=== PATIENT | female | born 1965 | race Caucasian/White ===

== ENCOUNTER 2017-08-05 13:56 | Inpatient (IN) | payer OTHER ==
[~2017-08-05] VITALS: Ht 160 cm; Wt 76.3 kg
[~2017-08-05 13:56] MED LIST: ASPIRIN
--- OUTSIDE RECORDS SUMMARY | 2017-08-05 13:59 | XMS REPORT | Clinical Summary ---
Author Author [facility] Address Unknown Phone Unavailable Care Team Providers Care Tobacco Sampler Name Role Phone Isma Wallace MD PCP Allergies No Known Allergies Current Medications Prescription Sig. Disp. Refills Start End Date Status Date naproxen (NAPROSYN) 500 04/16/20 Active MG tablet 17 traMADol (ULTRAM) 50 mg 04/16/20 Active tablet 17 ondansetron (ZOFRAN, Take 1 tablet (4 mg 20 tablet 0 04/21/20 Active HYDROCHLORIDE,) 4 MG total) by mouth every 8 17 tabletIndications: Closed (eight) hours as needed displaced pilon fracture for nausea or vomiting. of left tibia, initial encounter traMADol (ULTRAM) 50 mg Take 1 tablet (50 mg 40 tablet 0 04/21/20 tabletIndications: Closed total) by mouth every 6 17 18 displaced pilon fracture (six) hours as needed for of left tibia, initial moderate pain for up to encounter 33 days. oxyCODone-acetaminophen Take 1 tablet by mouth 40 tablet 0 04/21/20 05/05/20 (PERCOCET) 10-325 mg per every 4 (four) hours as 17 17 tabletIndications: Closed needed for moderate pain displaced pilon fracture for up to 14 days. Max of left tibia, initial Daily Amount: 6 tablets encounter Active Problems Problem Noted Date Closed displaced pilon fracture of left tibia 04/19/2017 Encounters Date Type Specialty Care Team Description 08/04/2017 Telephone Orthopedic Surgery Deyanira Kolb MA 07/19/2017 Office Visit Orthopedic Surgery Jose L Malagon Closed displaced pilon MD Cedric fracture of left tibia with routine healing, subsequent encounter (Primary Dx) 07/18/2017 Orders Only Orthopedic Surgery Deyanira Kolb MA Closed displaced pilon fracture of left tibia with routine healing, subsequent encounter (Primary Dx) 06/13/2017 Orders Only Ortho Sports Medicine Mallory Kat MA Closed displaced pilon fracture of left tibia with routine healing, subsequent encounter (Primary Dx) 06/07/2017 Office Visit Orthopedic Surgery Jose L Malagon Left ankle pain, MD Cedric unspecified chronicity (Primary Dx); Closed displaced pilon fracture of left tibia with routine healing, subsequent encounter 05/17/2017 Office Visit Orthopedic Surgery Jose L Malagon Closed displaced amando Steele MD fracture of left tibia with routine healing, subsequent encounter 05/06/2017 Telephone Orthopedic Surgery Jose L Malagon MD 05/03/2017 Office Visit Orthopedic Surgery Jose L Malagon Closed displaced amando Steele MD fracture of left tibia with routine healing, subsequent encounter (Primary Dx) 04/29/2017 Telephone Orthopedic Surgery Deyanira Kolb MA 04/27/2017 Hospital General Surgery Jose L Malagon Encounter MD Cedric 04/27/2017 Anesthesia General Surgery Gavin Guajardo Event MD 04/27/2017 Procedure Pass General Surgery 04/27/2017 Surgery General Surgery Jose L Malagon ORIF, DISTAL TIBIA MD Cedric FRACTURE 04/25/2017 Pre-Admit Pre-Admission Testing Jose L Malagon Testing MD Cedric Appointment 04/21/2017 Office Visit Orthopedic Surgery Jose L Malagon Closed displaced amando Steele MD fracture of left tibia, initial encounter (Primary Dx) 04/19/2017 Hospital Radiology Jose L Malagon Left ankle pain, Encounter MD Cedric unspecified chronicity 04/19/2017 Office Visit Orthopedic Surgery Jose L Malagon Left ankle pain, MD Cedric unspecified chronicity (Primary Dx); Closed displaced pilon fracture of left tibia, initial encounter after 08/04/2016 Family History Medical History Relation Name Comments Heart disease Father Cancer Mother Diabetes Mother Hypertension Mother Relation Name Status Comments Father Mother Social History Tobacco Use Types Packs/Day Years Used Date Heavy Tobacco Smoker Cigarettes 0.5 15 Smokeless Tobacco: Never Used Alcohol Use Drinks/Week oz/Week Comments Yes 3-4 glasses of wine per week Sex Assigned at Date Recorded Not on file Last Filed Vital Signs Vital Sign Reading Time Taken Blood Pressure 144/83 07/19/2017 9:13 AM [facility]ER Pulse 86 07/19/2017 9:13 AM [facility]ING DEPARTMENT END FINDER Temperature 36.6 C (97.9 F) 04/27/2017 2:24 PM TWISTING DEPARTMENT END FINDER Respiratory Rate 18 04/27/2017 4:12 PM TWISTING DEPARTMENT END FINDER Oxygen Saturation 99% 04/27/2017 4:12 PM TWISTING DEPARTMENT END FINDER Inhaled Oxygen - - Concentration Weight 72.6 kg (160 lb) 08/03/2017 11:18 AM CDT Height 160 cm (5' 3") 08/03/2017 11:18 AM CDT Body Mass Index 28.34 08/03/2017 11:18 AM CDT Plan of Treatment Date Type Specialty Care Team Description 08/12/2017 Surgery Jose L Malagon REMOVAL, HARDWARE, PLATE MD Cedric AND SCREWS LEFT ANKLE [address] [facility] [address] [place] [address] [phone] 08/12/2017 Procedure Pass 08/12/2017 [facility] Jose L Malagon MD [address] [facility] [address] [place] [address] [phone] 08/18/2017 Office Visit Orthopedic Surgery Jose L Malagon MD [address] [facility] [address] [place] [address] [phone] Health Maintenance Due Date Last Done Comments PAP SMEAR 1988 INFLUENZA VACCINE 12/21/2016 COLONOSCOPY 2017 MAMMOGRAM 2017 Implants Implanted Type Area Intake Specialist Device Expiration Model / Identifier Date Serial / Lot 2.7/3.5mm Va-Lcp Medial Distal IPM Left: SYNTHES TRAUMA 02 118 [id number] Tibia Plate/4 Holes/Left - IMPLANT Tibia / [id number] DEVICES / Implanted: Qty: 1 on 04/27/2017 by LOT NA Jose L Malagon MD 3.5mm Variable Angle Locking IPM Left: SYNTHES TRAUMA 02 127 124 Screw/Slf-Tpng/Strdrv/24mm - IMPLANT Tibia / [id number] DEVICES / Implanted: Qty: 2 on 04/27/2017 by Jose L Malagon MD 2.7mm Va Lckng Screw Slf-Tpng With IPM Left: SYNTHES TRAUMA 02 211 034 T8 Stardrive Recess 34mm - IMPLANT Tibia / [id number] DEVICES / Implanted: Qty: 1 on 04/27/2017 by Jose L Malagon MD 2.7mm Va Lckng Screw Slf-Tpng With IPM Left: SYNTHES TRAUMA 211 036 T8 Stardrive Recess 36mm - IMPLANT Tibia / [id number] DEVICES / Implanted: Qty: 1 on 04/27/2017 by Jose L Malagon MD 2.7mm Va Lckng Screw Slf-Tpng With IPM Left: SYNTHES TRAUMA 211 040 T8 Stardrive Recess 40mm - IMPLANT Tibia / [id number] DEVICES / Implanted: Qty: 1 on 04/27/2017 by Jose L Malagon MD 2.7mm Va Lckng Screw Slf-Tpng With IPM Left: SYNTHES TRAUMA 02 211 032 T8 Stardrive Recess 32mm - IMPLANT Tibia / [id number] DEVICES / Implanted: Qty: 1 on 04/27/2017 by Jose L Malagon MD 2.7mm Va Lckng Screw Slf-Tpng With IPM Left: SYNTHES TRAUMA 211 046 T8 Stardrive Recess 46mm - IMPLANT Tibia / [id number] DEVICES / Implanted: Qty: 1 on 04/27/2017 by Jose L Malagon MD 2.7mm Va Lckng Screw Slf-Tpng With IPM Left: SYNTHES TRAUMA 02 211 048 T8 Stardrive Recess 48mm - IMPLANT Tibia / [id number] DEVICES / Implanted: Qty: 1 on 04/27/2017 by Jose L Malagon MD Screw Bone Lkng Slf-Tap V-Ang Ss Orthopedic Left: SYNTHES TRAUMA 02 211 018 2.7x18mm - [id number] Trauma Tibia AND RECON / Implanted: Qty: 1 on 04/27/2017 by Implants / Jose L Malagon MD Screw Bone Lkng Slf-Tap V-Ang W/ T8 Orthopedic Left: SYNTHES TRAUMA 02 211 030 Strdrv Recs Ss 2.7x30mm - [id number] Trauma Tibia AND RECON / Implanted: Qty: 1 on 04/27/2017 by Implants / Jose L Malagon MD Screw Bone Lkng Slf-Tap V-Ang Ss Orthopedic Left: SYNTHES TRAUMA 02 211 038 2.7x38mm - [id number] Trauma Tibia AND RECON / Implanted: Qty: 2 on 04/27/2017 by Implants / Jose L Malagon MD Wire K Trcr Pt 1.0n610pl Ss - Orthopedic Left: SYNTHES TRAUMA 292 16 / [id number] Trauma Tibia AND RECON / Implanted: Qty: 1 on 04/27/2017 by Implants Jose L Malagon MD Explanted Type Area Intake Specialist Device Expiration Model / Identifier Date Serial / Lot 2.7mm Va Lckng Screw Slf-Tpng With IPM Left: SYNTHES TRAUMA 02 211 032 T8 Stardrive Recess 32mm - IMPLANT Tibia / [id number] DEVICES / Implanted: 04/27/2017 (Quantity not on file) Explanted: Qty: 1 on 04/27/2017 2.7mm Va Lckng Screw Slf-Tpng With IPM Left: SYNTHES TRAUMA 02 211 048 T8 Stardrive Recess 48mm - IMPLANT Tibia / [id number] DEVICES / Implanted: 04/27/2017 (Quantity not on file) Explanted: Qty: 1 on 04/27/2017 Procedures Procedure Name Priority Date/Time Associated Diagnosis Comments ORIF, DISTAL TIBIA 04/27/2017 LEFT ANKLE PILON FRACTURE FRACTURE 12:00 PM TWISTING DEPARTMENT END FINDER S82.872A Special Needs NEEDS [employer] DISTAL TIBIA PLATESRICK -[employer] NOTIFIED, WILL BE USING OUR 2.7/3.5 LCP ANKLE TRAUMA SET THAT IS OURS..[facility] 04/25/17 @0830 ANESTHESIA PERIPHERAL Routine 04/27/2017 BLOCK 11:30 AM TWISTING DEPARTMENT END FINDER Procedure Note - Gavin Guajardo MD - 04/27/2017 11:16 AM TWISTING DEPARTMENT END FINDER Peripheral Block Performed by: GAVIN GUAJARDO Authorized by: GAVIN GUAJARDO Patient Location: Holding area Start Time: 04/27/2017 11:18 AM End Time: 04/27/2017 11:29 AM Staff: Anesthesio logist: MCINROE, GAVIN MAVIS Performed by: Anesthesio logist Preprocedu re: patient identified , IV checked, site and side verified, risks and benefits discussed, procedure verified, surgical consent complete, patient position confirmed, monitors and equipment checked, pre-op evaluation complete and site marked Time Out Performed: 04/27/2017 11:16 AM Peripheral Nerve Block: Patient Position: Prone Prep: ChloraPrep Monitoring : Continuous pulse oximetry, blood pressure monitoring and heart rate Block Type: Popliteal Laterality : Left Injection Technique: Single injection Procedures : nerve stimulator Local Infiltrati on (See MAR for details): Bupivacain e Loss of Twitch: 0.4 mA Needle: Needle Type: Short-beve l Needle Gauge: 21 G Needle Length: 4 in Assessment : Injection Assessment : Intermitte nt aspiration during local anesthetic administra tion and no symptoms of intraneura l/intraven ous injection Heart Rate Change: No Slow Fractionat ed Injection: Yes Block outcome: No apparent complicati ons, patient comfortabl e and patient tolerated procedure well after 08/04/2016 Results * XR Ankle 3+ Vw Left (07/19/2017 9:10 AM) Only the most recent of 3 results within the time period is included. Specimen Performing Laboratory [facility] [address] [place] [address] Narrative . Excellent healing of the fracture. No signs of joint step off and AP and lateral. No increase in medial or syndesmotic clear space. * OR FL < 1 Hour (04/27/2017 2:20 PM) Specimen Performing Laboratory [facility] [address] [place] [address] Narrative EXAMINATION:OR FL 1 HOUR C-arm fluoroscopy was requested in OR.FLUORO TIME 0:17 IMPRESSION: Separate operative report will be issued by the physician performing the procedure. [id number] Procedure Note Hm Interface, Radiology Results Incoming - 04/27/2017 3:56 PM TWISTING DEPARTMENT END FINDER EXAMINATION: OR FL 1 HOUR C-arm fluoroscopy was requested in OR. FLUORO TIME 0:17 IMPRESSION: Separate operative report will be issued by the physician performing the procedure. [id number] * CT Lower Extremity Wo Contrast Left (04/19/2017 12:54 PM) Specimen Performing Laboratory [facility] [address] [place] [address] Narrative EXAMINATION:CT LOWER EXTREMITY WO CONTRAST LEFT CLINICAL HISTORY:51 years Female M25.572 Pain in left ankle and joints of left foot, pain TECHNIQUE: Multiple axial images of the rightwere obtained without contrast. Images were submitted in bone and soft tissue windows. Sagittal and coronal computerized reformatted images were also obtained. CT imaging was performed with iterative reconstruction techniques and/or automated exposure control to reduce radiation dose. COMPARISON:None. Findings: There is a comminuted intra-articular fracture of the tibial plafond. There are vertical fracture lines extending cranially through the mid medial malleolus to the posterior cortex of the distal tibia with several smaller fragments. The point of maximum separation of the tibial plafond fracture fragments is toward the lateral side with a gap of approximately 3 to 3.3 mm laterally. In the craniocaudal plane posteriorly there is approximately 2 mm of depression of a fragment along the posterior lateral corner of the tibial plafond. The there is a posterior malleolar fracture with displacement of the fracture fragment posteriorly by approximately 3 mm. There is no significant angulation of the fracture fragments. The fibula appears intact although there may be a tiny flake avulsion age uncertain of the anterior corner of the distal fibula. The calcaneus and talus appear intact. No additional findings of significance are noted. Diffuse soft tissue swelling about the ankle is noted. IMPRESSION: 1. Fractures of the tibial plafond and including a vertically oriented fracture through the medial malleolus and posterior malleolus. At the point of maximum separation the tibial plafond and articular surface has a gap of approximately 3 mm in the AP plane 2. Minimal step-off of the posterior lateral corner of the tibial plafond and best visualized on coronal images posteriorly approximately 2 mm. This is a minimal finding and only involves the posterior lateral corner. 3. Slight widening of the lateral tibiotalar joint space. [id number] Procedure Note Hm Interface, Radiology Results Incoming - 04/19/2017 1:45 PM TWISTING DEPARTMENT END FINDER EXAMINATION: CT LOWER EXTREMITY WO CONTRAST LEFT CLINICAL HISTORY:51 years Female M25.572 Pain in left ankle and joints of left foot, pain TECHNIQUE: Multiple axial images of the right were obtained without contrast. Images were submitted in bone and soft tissue windows. Sagittal and coronal computerized reformatted images were also obtained. CT imaging was performed with iterative reconstruction techniques and/or automated exposure control to reduce radiation dose. COMPARISON: None. Findings: There is a comminuted intra-articular fracture of the tibial plafond. There are vertical fracture lines extending cranially through the mid medial malleolus to the posterior cortex of the distal tibia with several smaller fragments. The point of maximum separation of the tibial plafond fracture fragments is toward the lateral side with a gap of approximately 3 to 3.3 mm laterally. In the craniocaudal plane posteriorly there is approximately 2 mm of depression of a fragment along the posterior lateral corner of the tibial plafond. The there is a posterior malleolar fracture with displacement of the fracture fragment posteriorly by approximately 3 mm. There is no significant angulation of the fracture fragments. The fibula appears intact although there may be a tiny flake avulsion age uncertain of the anterior corner of the distal fibula. The calcaneus and talus appear intact. No additional findings of significance are noted. Diffuse soft tissue swelling about the ankle is noted. IMPRESSION: 1. Fractures of the tibial plafond and including a vertically oriented fracture through the medial malleolus and posterior malleolus. At the point of maximum separation the tibial plafond and articular surface has a gap of approximately 3 mm in the AP plane 2. Minimal step-off of the posterior lateral corner of the tibial plafond and best visualized on coronal images posteriorly approximately 2 mm. This is a minimal finding and only involves the posterior lateral corner. 3. Slight widening of the lateral tibiotalar joint space. [id number] after 08/04/2016 Insurance Payer Benefit Subscriber ID Type Phone Address Plan / Group AETSATHYA AETNA PPO xxxxxxxxxx PPO OPEN CHOICE
--- OUTSIDE RECORDS SUMMARY | 2017-08-05 13:59 | XMS REPORT ---
Author Author [facility] Address Unknown Phone Unavailable Care Team Providers Care English Lecturer Name Role Phone SHERLY CALERO Unavailable Unavailable Problems This patient has no known problems. Allergies, Adverse Reactions, Alerts This patient has no known allergies or adverse reactions. Medications This patient has no known medications. Results Test Description Test Time Test Comments Text Results Atomic Results Result Comments ANKLE 3+ VIEWS LEFT [place] [address] Patient Name: ANDRE ANGELA MR #: [id number] : 1965 Age/Sex: 51/F Req #: [id number] Adm Physician: Ordered by: SHERLY CALERO MD Report #: [id number] Location: ER Room/Bed: Procedure: [id number] DX/ANKLE 3+ VIEWS LEFT Exam Date: Exam Time: REPORT STATUS: Signed EXAM: Left tibia, fibula and ankle, 3 views each DATE: April 15, 2017 Time stamp on exam: 2247 hours INDICATION: Fall, twisted ankle COMPARISON: None FINDINGS: BONES: Acute mildly displaced fracture of the proximal fibular head. Acute mildly displaced fracture through the distal tibial metaphysis with intra-articular extension. Acute mildly displaced fracture of the posterior malleolus. JOINTS: No malalignment. SOFT TISSUES: Soft tissue swelling surrounding the fractures IMPRESSION: Acute mildly displaced fracture of the proximal fibular head. Acute mildly displaced fracture through the distal tibial metaphysis with intra-articular extension. Acute mildly displaced fracture of the posterior malleolus. Signed by: Dr. Shannon Feng M.D. on 04/15/2017 11:35 PM Dictated By: SHANNON FENG MD 34 Transcribed By: YOMI on 2334 COPY TO: SHERLY CALERO MD LOWER LEG LEFT [place] [address] Patient Name: ANDRE ANGELA MR #: [id number] : 1965 Age/Sex: 51/F Req #: [id number] Adm Physician: Ordered by: SHERLY CALERO MD Report #: [id number] Location: ER Room/Bed: Procedure: [id number] DX/LOWER LEG LEFT Exam Date: Exam Time: REPORT STATUS: Signed EXAM: Left tibia, fibula and ankle, 3 views each DATE : April 15, 2017 Time stamp on exam: 2247 hours INDICATION: Fall, twisted ankle COMPARISON: None FINDINGS: BONES: Acute mildly displaced fracture of the proximal fibular head. Acute mildly displaced fracture through the distal tibial metaphysis with intra-articular extension. Acute mildly displaced fracture of the posterior malleolus. JOINTS: No malalignment. SOFT TISSUES: Soft tissue swelling surrounding the fractures IMPRESSION: Acute mildly displaced fracture of the proximal fibular head. Acute mildly displaced fracture through the distal tibial metaphysis with intra-articular extension. Acute mildly displaced fracture of the posterior malleolus. Signed by: Dr. Shannon Feng M.D. on 04/15/2017 11:35 PM Dictated By: SHANNON FENG MD 34 Transcribed By: YOMI on 2338 COPY TO: SHERLY CALERO MD
[2017-08-05] MEDS ORDERED: SODIUM CHLORIDE 0.9% 1000ML 1,000 ML IV STA ×2 (15:39)
[2017-08-05] MEDS ORDERED: ONDANSETRON HCL INJ 2 MG/ML VIAL IV STA (15:39)
[2017-08-05] MEDS ORDERED: MORPHINE SULFATE 4 MG/ML SYR IV STA (15:39)
[2017-08-05] MEDS ORDERED: PIPER-TAZ 3.375 GM 50 ML IV STA (15:39)
[2017-08-05] MEDS ORDERED: ONDANSETRON HCL INJ 2 MG/ML VIAL IV PRN (15:45)
[2017-08-05] MEDS ORDERED: MORPHINE SULFATE 2 MG/ML SYR IV PRN (16:00)
[2017-08-05 16:01] LABS: BASOPHILS # (AUTO) 0.1 (0.0-0.1); BASOPHILS % 0.4 % (0.0-1.0); EOSINOPHILS # (AUTO) 0.1 (0.0-0.4); EOSINOPHILS % 0.4 % (0.0-6.0); HEMATOCRIT 44.1 % (34.2-44.1); HEMOGLOBIN 15.6 g/dL (12.0-16.0); LYMPHOCYTES % 11.1 % (18.0-39.1); MEAN CORPUSCULAR HEMOGLOBIN 34.6 pg (28-32); MEAN CORPUSCULAR HGB CONC 35.4 g/dL (31-35); MEAN CORPUSCULAR VOLUME 97.8 fL (81-99); MONOCYTES # (AUTO) 1.3 (0.2-0.8); MONOCYTES % 6.9 % (4.4-11.3); NEUTROPHILS # (AUTO) 14.5 (2.1-6.9); NEUTROPHILS % 80.6 % (38.7-80.0); PLATELET COUNT 262 x10e3/uL (140-360); RED BLOOD COUNT 4.51 x10e6/uL (3.6-5.1); RED CELL DISTRIBUTION WIDTH 13.1 % (11.7-14.4)
[2017-08-05 16:05] LABS: INR 1.05; PROTHROMBIN TIME 12.9 seconds (11.9-14.5)
[2017-08-05 16:06] LABS: PARTIAL THROMBOPLASTIN TIME 37.1 seconds (23.8-35.5)
[2017-08-05 16:14] LABS: ALANINE AMINOTRANSFERASE 16 IU/L (0-55); ALBUMIN 3.8 g/dL (3.5-5.0); ALBUMIN/GLOBULIN RATIO 0.8 (0.8-2.0); ALKALINE PHOSPHATASE 126 IU/L (40-150); ANION GAP 18.3 mmol/L (8-16); BLOOD UREA NITROGEN 5 mg/dL (7-26); BUN/CREATININE RATIO 6 (6-25); CARBON DIOXIDE 24 mmol/L (22-29); CHLORIDE 93 mmol/L (98-107); CREATINE KINASE 88 IU/L (29-168); CREATININE, SERUM 0.77 mg/dL (0.57-1.11); EST GLOMERULAR FILTRATION RATE > 60 ML/MIN (60-); GLUCOSE 96 mg/dL (74-118); LIPASE 8 U/L (8-78); MAGNESIUM 1.7 MG/DL (1.3-2.1); POTASSIUM 3.3 mmol/L (3.5-5.1); SODIUM 132 mmol/L (136-145)
[2017-08-05] MEDS ORDERED: MORPHINE SULFATE 2 MG/ML SYR IV ONE (16:15)
--- NOTE | 2017-08-05 16:40 | Diagnostic Imaging Report ---
PROCEDURE: A single AP view of the chest. COMPARISON: 04/09/16 INDICATIONS: ABSCESS FINDINGS: Lines/tubes: None. Lungs: The lungs are well inflated and clear. There is no evidence of pneumonia or pulmonary edema. Pleura: There is no pleural effusion or pneumothorax. Heart and mediastinum: The heart and the mediastinum are unremarkable. Bones: No acute bony abnormality. IMPRESSION: 1. No acute cardiopulmonary disease. Dictated by: Mikie Carter M.D. on 08/05/2017 at 16:40 Electronically approved by: Mikie Carter M.D. on 08/05/2017 at 16:40
--- OUTSIDE RECORDS SUMMARY | 2017-08-05 16:44 | XMS REPORT | Clinical Summary ---
Author Author [facility] Organization [facility] Address Unknown Phone Unavailable Care Team Providers Care Communications Operator Name Role Phone Isma Wallace MD PCP [...] Taken Blood Pressure 144/83 07/19/2017 9:13 AM [facility] Pulse 86 07/19/2017 9:13 AM [facility] Temperature 36.6 C (97.9 F) 04/27/2017 2:24 PM [facility] Respiratory Rate 18 04/27/2017 4:12 PM [facility] Oxygen Saturation 99% 04/27/2017 4:12 PM [facility] Inhaled Oxygen - - Concentration Weight 72.6 kg (160 lb) 08/03/2017 11:18 AM CDT Height 160 cm (5' 3") 08/03/2017 11:18 AM CDT Body Mass Index 28.34 08/03/2017 11:18 AM CDT Plan of Treatment Date Type Specialty Care Team Description 08/12/2017 Surgery Jose L Malagon REMOVAL, HARDWARE, PLATE MD Cedric AND SCREWS LEFT ANKLE [address] [place] [address] [phone] 08/12/2017 Procedure Pass 08/12/2017 [facility] Jose L Malagon MD [address] [place] [address] [phone] 08/18/2017 Office Visit Orthopedic Surgery Jose L Malagon MD [address] [place] [address] [phone] Health Maintenance Due Date Last Done Comments PAP SMEAR 1988 INFLUENZA VACCINE 12/21/2016 COLONOSCOPY 2017 MAMMOGRAM 2017 Implants Implanted Type Area School Plant Consultant Device Expiration Model / Identifier Date Serial / Lot 2.7/3.5mm Va-Lcp Medial Distal IPM Left: SYNTHES TRAUMA 02 118 003 Tibia Plate/4 Holes/Left - IMPLANT Tibia / [id number] DEVICES / Implanted: Qty: 1 on 04/27/2017 by LOT NA Jose L Malagon MD 3.5mm Variable Angle Locking IPM Left: SYNTHES TRAUMA 02 127 124 Screw/Slf-Tpng/Strdrv/24mm - IMPLANT Tibia / [id number] DEVICES / Implanted: Qty: 2 on 04/27/2017 by Jose L Malagon MD 2.7mm Va Lckng Screw Slf-Tpng With IPM Left: SYNTHES TRAUMA 02 211 034 T8 Stardrive Recess 34mm - IMPLANT Tibia / [id number] DEVICES / Implanted: Qty: 1 on 04/27/2017 by Jose L Malagon MD 2.7mm Va Lckng Screw Slf-Tpng With IPM Left: SYNTHES TRAUMA 211 036 T8 Stardrive Recess 36mm - IMPLANT Tibia / [id number] DEVICES / Implanted: Qty: 1 on 04/27/2017 by Jose L Malagon MD 2.7mm Va Lckng Screw Slf-Tpng With IPM Left: SYNTHES TRAUMA 211 040 T8 Stardrive Recess 40mm - IMPLANT Tibia / [id number] DEVICES / Implanted: Qty: 1 on 04/27/2017 by Jose L Malagon MD 2.7mm Va Lckng Screw Slf-Tpng With IPM Left: SYNTHES TRAUMA 02 211 032 T8 Stardrive Recess 32mm - IMPLANT Tibia / [id number] DEVICES / Implanted: Qty: 1 on 04/27/2017 by Jose L Malagon MD 2.7mm Va Lckng Screw Slf-Tpng With IPM Left: SYNTHES TRAUMA 211 046 T8 Stardrive Recess 46mm - IMPLANT Tibia / [id number] DEVICES / Implanted: Qty: 1 on 04/27/2017 by Jose L Malagon MD 2.7mm Va Lckng Screw Slf-Tpng With IPM Left: SYNTHES TRAUMA 02 211 048 T8 Stardrive Recess 48mm - IMPLANT Tibia / [id number] DEVICES / Implanted: Qty: 1 on 04/27/2017 by Jose L Malagon MD Screw Bone Lkng Slf-Tap V-Ang Ss Orthopedic Left: SYNTHES TRAUMA 02 211 018 2.7x18mm - [id number] Trauma Tibia AND RECON / Implanted: Qty: 1 on 04/27/2017 by Implants / Jose L Malagon MD Screw Bone Lkng Slf-Tap V-Ang W/ T8 Orthopedic Left: SYNTHES TRAUMA 02 211 030 Strdrv Recs Ss 2.7x30mm - [id number] Trauma Tibia AND RECON / Implanted: Qty: 1 on 04/27/2017 by Implants / Jose L Malagon MD Screw Bone Lkng Slf-Tap V-Ang Ss Orthopedic Left: SYNTHES TRAUMA 02 211 038 2.7x38mm - [id number] Trauma Tibia AND RECON / Implanted: Qty: 2 on 04/27/2017 by Implants / Jose L Malagon MD Wire K Trcr Pt [id number] Ss - Orthopedic Left: SYNTHES TRAUMA 292 16 / [id number] Trauma Tibia AND RECON / Implanted: Qty: 1 on 04/27/2017 by Implants Jose L Malagon MD Explanted Type Area School Plant Consultant Device Expiration Model / Identifier Date Serial / Lot 2.7mm Va Lckng Screw Slf-Tpng With IPM Left: SYNTHES TRAUMA 02 211 032 T8 Stardrive Recess 32mm - IMPLANT Tibia / [id number] DEVICES / Implanted: 04/27/2017 (Quantity not on file) Explanted: Qty: 1 on 04/27/2017 2.7mm Va Lckng Screw Slf-Tpng With IPM Left: SYNTHES TRAUMA 02 211 048 T8 Stardrive Recess 48mm - IMPLANT Tibia / [id number] DEVICES / Implanted: 04/27/2017 (Quantity not on file) Explanted: Qty: 1 on 04/27/2017 Procedures Procedure Name Priority Date/Time Associated Diagnosis Comments ORIF, DISTAL TIBIA 04/27/2017 LEFT ANKLE PILON FRACTURE FRACTURE 12:00 PM [facility] S82.872A Special Needs NEEDS ACHICA DISTAL TIBIA PLATESRICK -ACHICA NOTIFIED, WILL BE USING OUR 2.7/3.5 LCP ANKLE TRAUMA SET THAT IS OURS..[facility] 04/25/17 @0830 ANESTHESIA PERIPHERAL Routine 04/27/2017 BLOCK 11:30 AM [facility] Procedure Note - Gavin Guajardo MD - 04/27/2017 11:16 AM [facility] Peripheral Block Performed by: GAVIN GUAJARDO Authorized [...] is included. Specimen Performing Laboratory [facility] [address] [place] [address] Narrative . Excellent healing of the fracture. No signs of joint step off and AP and lateral. No increase in medial or syndesmotic clear space. * OR FL < 1 Hour (04/27/2017 2:20 PM) Specimen Performing Laboratory [facility] [address] [place] [address] Narrative EXAMINATION:OR FL 1 HOUR C-arm fluoroscopy was requested in OR.FLUORO TIME 0:17 IMPRESSION: Separate operative report will be issued by the physician performing the procedure. [id number] Procedure Note Hm Interface, Radiology Results Incoming - 04/27/2017 3:56 PM [facility] EXAMINATION: OR FL 1 HOUR C-arm fluoroscopy was requested in OR. FLUORO TIME 0:17 IMPRESSION: Separate operative report will be issued by the physician performing the procedure. [id number] * CT Lower Extremity Wo Contrast Left (04/19/2017 12:54 PM) Specimen Performing Laboratory [facility] [address] [place] [address] Narrative EXAMINATION:CT LOWER EXTREMITY WO CONTRAST LEFT [...] widening of the lateral tibiotalar joint space. [id number] Procedure Note Hm Interface, Radiology Results Incoming - 04/19/2017 1:45 PM [facility] EXAMINATION: CT LOWER EXTREMITY WO CONTRAST LEFT [...] widening of the lateral tibiotalar joint space. [id number] after 08/04/2016 Insurance Payer Benefit Subscriber ID Type Phone Address Plan / Group AETSATHYA AETNA PPO xxxxxxxxxx PPO OPEN CHOICE
[2017-08-05] MEDS ORDERED: HYDRALAZINE HCL 20 MG/ML VIAL IV PRN (17:00)
[2017-08-05] MEDS ORDERED: MELATONIN 5 MG TABLET PO PRN (17:00)
[2017-08-05] MEDS ORDERED: HYDROCODONE/APAP 5MG-325MG TAB PO PRN (17:00)
[2017-08-05] MEDS ORDERED: FAMOTIDINE 20 MG/2 ML VIAL IV SCH (17:00)
[2017-08-05] MEDS ORDERED: IBUPROFEN 600 MG TAB PO PRN (17:15)
[2017-08-05] MEDS ORDERED: ACETAMINOPHEN 325 MG TAB PO PRN (17:15)
[2017-08-05] MEDS ORDERED: IBUPROFEN 600 MG TAB PO SCH (17:15)
[2017-08-05] MEDS ORDERED: POTASSIUM CHLORIDE 20 MEQ TAB CR PO ONE (17:15)
--- NOTE | 2017-08-05 17:36 | History and Physical ---
CHIEF COMPLAINT: Right breast redness, concern for abscess. HISTORY OF PRESENT ILLNESS: This is a 52-year-old female with no past medical history who comes into the ED with complaints of right breast pain and redness ongoing for the last one week. The patient reports it initially started as a small pimple and continued to progressively get worse, red and hot, and went to her primary care physician and given some oral antibiotics. Her pain continued to get worse with worsening erythema, pain and worsening in size and her primary care physician told her to come to the ER for further evaluation. The patient reports having subjective fevers at home. Denies any chills, chest pain or palpitations. The patient was in the process of seeing general surgery, Dr. Mcclure, as an outpatient, but due to the worsening pain and redness she came into the ED for further evaluation. The patient was seen and evaluated at bedside on the medical floor and the ER, currently doing well with no other complaints. The patient was examined with the nurse present at bedside, and has redness and erythema and tender to palpation on the right breast. REVIEW OF SYSTEMS: Pertinent positives: Right breast pain with erythema, subjective fever. Pertinent negatives: Denies any chest pain, palpitations, nausea, vomiting, diarrhea, dysuria, hematuria, frequency or urgency, lightheadedness, dizziness, abdominal pain, headache, shortness of breath, or any other complaints. The rest of the 14-point review of systems reviewed with the patient and are negative. ALLERGIES: NO KNOWN DRUG ALLERGIES. HOME MEDICATIONS: She reports not taking any. PAST MEDICAL HISTORY: None. PAST SURGICAL HISTORY: She had a hysterectomy. She has had a left ankle repair with pins and screws. FAMILY HISTORY: Hypertension, diabetes. SOCIAL HISTORY: She smoked half a pack a day for more than 20+ years. Denies drugs or alcohol. She is currently working. PHYSICAL EXAMINATION VITAL SIGNS: Temperature 100.4, pulse 87, respiratory rate 18, blood pressure 145/82, pulse oximetry 99% on room air. GENERAL: In no acute distress, alert and oriented x3, cooperative on examination. HEENT: Head is normocephalic, atraumatic. Eyes: Pupils equal, round and reactive to light bilaterally. Extraocular movements intact bilaterally. Throat with no evidence of erythema or exudates in the posterior pharynx. Has poor dentition. NECK: Supple with good range of motion. PULMONARY: Clear to auscultation bilaterally with no wheezing, no rales, no rhonchi. No crackles appreciated. CARDIOVASCULAR: Positive S1 and S2, no murmurs, rubs or gallops appreciated. ABDOMEN: Soft, nondistended, nontender on palpation. Bowel sounds were present. MUSCULOSKELETAL: Strength 5/5 throughout, no evidence of musculoskeletal deficit on exam. No weakness appreciated. NEUROLOGIC: Cranial nerves II-XII grossly intact. No evidence of neurological deficit on examination. BREASTS: Right breast has erythema, tender to palpation, warm to touch, but no evidence of any discharge. Nurse was present throughout the whole entire examination. EXTREMITIES: No edema. Good range of motion throughout. PSYCHIATRIC: Normal affect and mood. LABORATORY DATA: White count of 18, hemoglobin 15.6, hematocrit 44, MCV 97, platelets 262,000. Coagulations were normal. Chemistry: Sodium 132, potassium 3.3, chloride 93, bicarb 24, anion gap of 18, BUN 5, creatinine 0.77, glucose 96, calcium 10, magnesium 1.7. Her LFTs were normal. CK MB 0.8, troponin negative. BNP less than 10. Albumin is 3.8 and lipase is 8. MICROBIOLOGY: None. IMAGING: Chest x-ray: No acute cardiopulmonary disease. IMPRESSION 1. Right breast cellulitis abscess. 2. Leukocytosis. 3. Fever. 4. Hypokalemia. 5. Prophylaxis. PLAN: At this time, general surgery has been consulted for I\T\D. Infectious disease consulted as well. The patient will be on IV vancomycin and Zosyn. Blood cultures have been collected. Will await for wound cultures once I\T\D has been performed. Continue with pain control. NPO at this time with IV fluids. Hold anticoagulation for now. The patient will likely be admitted through the weekend until we are able to get wound culture ID and sensitivity. Will continue to monitor. Await consultants further recommendations. Job#: [id number]
[2017-08-05] MEDS ORDERED: POTASSIUM CHLORIDE 20MEQ/15ML UDC PO ONE (19:45)
[2017-08-05] MEDS: VANCOMYCIN 1GM/NS 250 ML 250 ML IV SCH (20:48)
[2017-08-06] VITALS (9 sets, daily range): BP systolic 115–152; BP diastolic 56–70
[2017-08-06] MEDS: PIPER-TAZ 3.375 GM 50 ML IV SCH ×4 (00:26→23:00)
[2017-08-06] MEDS: SODIUM CHLORIDE 0.9% 1000ML 1,000 ML IV SCH ×3 (00:26→09:19)
[2017-08-06] MEDS: VANCOMYCIN 1GM/NS 250 ML 250 ML IV SCH ×2 (06:22→18:50)
[2017-08-06] MEDS ORDERED: POTASSIUM CHLORIDE 20MEQ/15ML UDC PO ONE (07:00)
[2017-08-06 08:57] LABS: ALANINE AMINOTRANSFERASE 10 IU/L (0-55); ALBUMIN 2.8 g/dL (3.5-5.0); ALBUMIN/GLOBULIN RATIO 0.8 (0.8-2.0); ALKALINE PHOSPHATASE 89 IU/L (40-150); ANION GAP 9.2 mmol/L (8-16); BLOOD UREA NITROGEN < 5 mg/dL (7-26); BUN/CREATININE RATIO 8 (6-25); CARBON DIOXIDE 23 mmol/L (22-29); CHLORIDE 105 mmol/L (98-107); CREATININE, SERUM 0.66 mg/dL (0.57-1.11); EST GLOMERULAR FILTRATION RATE > 60 ML/MIN (60-); GLUCOSE 100 mg/dL (74-118); MAGNESIUM 1.5 MG/DL (1.3-2.1); POTASSIUM 4.2 mmol/L (3.5-5.1); SODIUM 133 mmol/L (136-145)
[2017-08-06] MEDS ORDERED: FAMOTIDINE 10MG/ML 20ML VIAL IV SCH (09:00)
[2017-08-06 10:08] LABS: BASOPHILS # (AUTO) 0.1 (0.0-0.1); BASOPHILS % 0.5 % (0.0-1.0); EOSINOPHILS # (AUTO) 0.1 (0.0-0.4); EOSINOPHILS % 0.5 % (0.0-6.0); HEMATOCRIT 39.8 % (34.2-44.1); HEMOGLOBIN 13.6 g/dL (12.0-16.0); LYMPHOCYTES # (AUTO) 1.8 (1.0-3.2); LYMPHOCYTES % 14.7 % (18.0-39.1); MEAN CORPUSCULAR HGB CONC 34.2 g/dL (31-35); MEAN CORPUSCULAR VOLUME 99.5 fL (81-99); MONOCYTES # (AUTO) 1.1 (0.2-0.8); MONOCYTES % 9.3 % (4.4-11.3); NEUTROPHILS # (AUTO) 9.1 (2.1-6.9); NEUTROPHILS % 74.6 % (38.7-80.0); PLATELET COUNT 239 x10e3/uL (140-360)
[2017-08-06] MEDS ORDERED: ONDANSETRON HCL INJ 2 MG/ML VIAL IV PRN (16:45)
[2017-08-06] MEDS ORDERED: HYDROMORPHONE 1MG/1ML INJ IV PRN (16:45)
[2017-08-06] MEDS ORDERED: LIDOCAINE HCL 2% LOCAL INJ 5 ML SDV VIAL INJ ONE (18:05)
[2017-08-06] MEDS ORDERED: DEXAMETHASONE SOD PHOS INJ 4 MG/ML VIAL ONE (18:05)
[2017-08-06] MEDS ORDERED: PROPOFOL IV EMULSION 10 MG/ML 20 ML VIAL ONE (18:05)
[2017-08-06] MEDS ORDERED: ONDANSETRON HCL INJ 2 MG/ML VIAL ONE (18:05)
[2017-08-06] MEDS ORDERED: SEVOFLURANE INHAL SOLN 250 ML PEN BTL ONE (18:05)
[2017-08-06] MEDS ORDERED: KETOROLAC TROMETHAMINE 30 MG/ML VIAL ONE (18:05)
[2017-08-06] MEDS ORDERED: FENTANYL CITRATE/PF 100MCG/2 ML INJ ONE (18:30)
[2017-08-06] MEDS ORDERED: MIDAZOLAM HCL 2 MG/2 ML VIAL ONE (18:30)
[2017-08-07] VITALS: BP 120/57
--- NOTE | 2017-08-07 01:18 | Operative Report ---
DATE OF PROCEDURE: August 06, 2017 PREOPERATIVE DIAGNOSIS: Right breast abscess. POSTOPERATIVE DIAGNOSIS: Right breast abscess. OPERATION PERFORMED: Incision and drainage of right breast abscess. ANESTHESIA: General. COMPLICATIONS: None. ESTIMATED BLOOD LOSS: Minimal. DESCRIPTION OF PROCEDURE: With the patient lying in bed in the supine position, under good general anesthesia, the right breast was prepped with Betadine solution and draped in the usual manner. A small incision was made at the 3 o'clock position. On the right breast, an incision was deepened into the breast tissue and immediately a large breast cavity was entered which had gross purulent material. Cultures were taken. The material was then aspirated. A second counterincision was then made at the 6 o'clock position to cover the other end of the abscess cavity. The 2 were then joined with a 1/4-inch Jaylan drain which was tied to itself in a seton-type fashion. After this was done, all of the necrotic tissue and purulent material was debrided and aspirated. The cavity was then copiously irrigated with dilute Betadine solution, and the wound was then packed with 1/2-inch iodoform gauze. A dressing was applied. The sponge, lap, and needle counts were correct. Patient tolerated the procedure well and returned to the recovery room in stable condition. Job#: [id number] JOHNSON
[2017-08-07 04:00] VITALS: BP 116/59
[2017-08-07] MEDS: PIPER-TAZ 3.375 GM 50 ML IV SCH ×3 (06:02→22:03)
[2017-08-07 06:07] LABS: BASOPHILS % 0.2 % (0.0-1.0); EOSINOPHILS % 0.1 % (0.0-6.0); LYMPHOCYTES # (AUTO) 1.5 (1.0-3.2); LYMPHOCYTES % 12.4 % (18.0-39.1); MEAN CORPUSCULAR HEMOGLOBIN 34.3 pg (28-32); MEAN CORPUSCULAR HGB CONC 35.1 g/dL (31-35); MEAN CORPUSCULAR VOLUME 97.6 fL (81-99); MONOCYTES # (AUTO) 0.7 (0.2-0.8); MONOCYTES % 5.7 % (4.4-11.3); NEUTROPHILS # (AUTO) 9.8 (2.1-6.9); NEUTROPHILS % 81.2 % (38.7-80.0); PLATELET COUNT 227 x10e3/uL (140-360); RED BLOOD COUNT 3.79 x10e6/uL (3.6-5.1); RED CELL DISTRIBUTION WIDTH 12.5 % (11.7-14.4)
[2017-08-07 06:23] LABS: ANION GAP 13.4 mmol/L (8-16); BLOOD UREA NITROGEN 5 mg/dL (7-26); BUN/CREATININE RATIO 8 (6-25); CALCIUM 9.3 mg/dL (8.4-10.2); CARBON DIOXIDE 24 mmol/L (22-29); CHLORIDE 103 mmol/L (98-107); CREATININE, SERUM 0.64 mg/dL (0.57-1.11); EST GLOMERULAR FILTRATION RATE > 60 ML/MIN (60-); GLUCOSE 117 mg/dL (74-118); POTASSIUM 4.4 mmol/L (3.5-5.1); SODIUM 136 mmol/L (136-145)
[2017-08-07] MEDS: VANCOMYCIN 1GM/NS 250 ML 250 ML IV SCH ×2 (09:00→18:27)
[2017-08-07 12:00] VITALS: BP 128/62
[2017-08-07 16:00] VITALS: BP 151/70
[2017-08-07 20:00] VITALS: BP 147/65
--- NOTE | 2017-08-07 21:54 | Consultation ---
DATE OF CONSULTATION: August 07, 2017 REASON FOR CONSULTATION: Right breast abscess. HISTORY OF PRESENT ILLNESS: This is a 52-year-old white female who comes in with right breast swelling and redness for a week. No specific trauma that she can recall. Patient went to emergency room, given oral antibiotic, but in spite of that was getting progressively worse. Patient has been having sweats, not feeling well in general. She came to emergency room where she was admitted. When I came to see the patient yesterday, she was on her way to surgery, underwent her I and D. Today, she is feeling better, but still having night sweats. PAST MEDICAL HISTORY: She denies. PAST SURGICAL HISTORY: Hysterectomy. ALLERGIES: NKA. SOCIAL HISTORY: She smoked half a pack a day for more than 20 years. REVIEW OF SYSTEMS: HEENT: Negative. PULMONARY: Negative. CARDIAC: Negative. : Negative. PHYSICAL EXAMINATION: GENERAL: She is currently alert and oriented, does not seem to be in acute distress. VITAL SIGNS: Stable, currently afebrile. HEENT: She does not appear icteric. NECK: Supple. CHEST: Clear. COR: S1 and S2. No murmurs. ABDOMEN: Soft. Bowel sounds present. EXTREMITIES: No edema. SKIN: No rash. Right breast is packed. IMPRESSION: Abscess, status post incision and drainage. Agree with blood cultures. Agree with wound cultures. Will agree with vancomycin and Zosyn, await sensitivity. Will follow. Job#: [id number]
[2017-08-07] MEDS ORDERED: POTASSIUM CHLORIDE 20MEQ/15ML UDC PO ONE (22:00)
[2017-08-08] VITALS (8 sets, daily range): BP systolic 138–168; BP diastolic 66–87
[2017-08-08] MEDS: VANCOMYCIN 1GM/NS 250 ML 250 ML IV SCH ×2 (05:00→23:30)
[2017-08-08] MEDS: PIPER-TAZ 3.375 GM 50 ML IV SCH ×3 (06:00→22:05)
[2017-08-08] MEDS ORDERED: MUPIROCIN 2% OINT 22 GM TUBE TOP SCH (14:00)
--- NOTE | 2017-08-08 16:54 | Progress Note ---
DATE: August 08, 2017 SUBJECTIVE: Ms. Chanel is doing better today. She still has some redness and swelling in her breast area. Drain is still in. REVIEW OF SYSTEMS: Otherwise negative. OBJECTIVE GENERAL: Alert, oriented, does not seem to be in any acute distress. VITAL SIGNS: Stable, currently afebrile. HEENT: Not icteric. NECK: Supple. CHEST: Clear. BREASTS: Still some erythema and edema noted. SKIN: I also noted that there is erythema noted where her current IV is. IMPRESSION: Breast abscess, cellulitis, failed oral antibiotic. PLAN: Will continue with vancomycin. Culture is still pending. Since there is still erythema and edema, I would suggest to maybe give her another week of IV vancomycin and follow up as an outpatient. I will get a PICC line in her and then we will see if we can arrange IV antibiotic, and will be discharged tomorrow. Will follow. Job#: [id number]
--- NOTE | 2017-08-08 20:57 | Diagnostic Imaging Report ---
EXAM: XR CHEST 1 VIEW DATE: 08/08/2017 8:21 PM INDICATION: PICC line placement COMPARISON: None FINDINGS: Lines and Tubes: Right PICC with tip overlying distal SVC. Heart and Mediastinum: No acute findings. Lungs and Pleura: No pneumothorax. Atelectasis lung bases. Bones and Soft Tissues: No acute findings. IMPRESSION: 1. Right PICC. Signed by: Dr. Artemio Veliz MD on 08/08/2017 8:53 PM
[2017-08-09 01:27] VITALS: BP 158/80
[2017-08-09] MEDS: VANCOMYCIN 1GM/NS 250 ML 250 ML IV SCH ×2 (04:45→16:54)
[2017-08-09 05:07] VITALS: BP 145/89
[2017-08-09] MEDS: PIPER-TAZ 3.375 GM 50 ML IV SCH ×2 (06:44→15:04)
[2017-08-09 08:00] VITALS: BP 162/77
[2017-08-09] MEDS ORDERED: MUPIROCIN 2% OINT 22 GM TUBE TOP SCH (09:00)
[2017-08-09 09:50] VITALS: BP 162/77
[2017-08-09 12:00] VITALS: BP 153/74
[2017-08-09] MEDS ORDERED: PIPER-TAZ 3.375 GM 50 ML IV SCH (20:00)
--- NOTE | 2017-10-07 23:02 | Discharge Summary ---
RELOCATION COORDINATOR: Dr. Anderson Mcclure FINAL DIAGNOSES 1. Right breast abscess. 2. Status post incision and drainage of right breast abscess. 3. Antibiotics per Dr. Pagan. SUMMARY: Patient is a 52-year-old female with right breast abscess. Patient has incision and drainage of the right breast abscess on August 06, 2017. Postoperatively, the patient received IV antibiotics. The patient has arrangement for IV antibiotic per Dr. Pagan. Arrangement for antibiotics was done. The patient was stable. She was subsequently discharged home. Continue with IV antibiotics with home IV antibiotic arrangement infusion and follow up with Dr. Anderson Mcclure for postop care and Dr. Pagan for IV antibiotic. Patient will resume home medications. Job#: [id number] CQ
--- NOTE | 2017-10-10 09:13 | Consultation ---
DATE OF CONSULTATION: August 05, 2017 ADMITTING PHYSICIAN: Dr. Elam REASON FOR CONSULTATION: Right breast abscess. HPI: This 52-year-old female was admitted to the hospital after presenting to the emergency room with a 5-day history of right breast pain and redness, which had become progressively worse. This started to give her a significant amount of pain. For that reason, she presented to the emergency room and was admitted to the hospital. PAST MEDICAL HISTORY: Unremarkable. ALLERGIES: NONE. MEDICATIONS: None. REVIEW OF SYSTEMS: Otherwise unremarkable. PHYSICAL EXAMINATION GENERAL: Examination at the time of admission revealed a female lying in bed complaining of pain. She was running a low-grade fever. HEENT: No acute inflammation. NECK: No nodes, masses or bruits. LUNGS: Clear to auscultation. HEART: Regular rate and rhythm. ABDOMEN: Soft. Nontender. No masses. EXTREMITIES: Good pulses bilaterally. BREASTS: Examination showed her to have a very tender, large mass in the upper and medial side of the breast with a lot of surrounding erythema and what appeared to be some deep fluctuance. ASSESSMENT: Right breast abscess. PLAN: IV antibiotics and drainage of the abscess. Job#: [id number]
== END 2017-08-09 21:08 | disposition home or self-care (01) | DRG 584 ==
LOC: ER 13:56 → ERHOLD 16:41 → MED/SURG2 21:50
PROVIDERS: ADMIT Internal Medicine; ATTEND Internal Medicine
PROC: 0HBT0ZZ Excision of Right Breast, Open Approach (ICD-10-PCS; 2017-08-06)
PROC: 0H9T00Z Drainage of Right Breast with Drainage Device, Open Approach (ICD-10-PCS; principal; 2017-08-06 16:00)
PROC: 02HV33Z Insertion of Infusion Device into Superior Vena Cava, Percutaneous Approach (ICD-10-PCS; 2017-08-08)
DX: N61.1 Abscess of the breast and nipple (principal); L03.313 Cellulitis of chest wall; D72.829 Elevated white blood cell count, unspecified; F17.210 Nicotine dependence, cigarettes, uncomplicated; E87.6 Hypokalemia
CPT/HCPCS: 36415; 36569; 71045; 80048; 80053; 80202; 82550; 82553; 83690; 83735; 83880; 84100; 84484; 85025; 85610; 85730; 87040; 87071; 87075; 87205; 93005; 99284; J1100; J1885; J2001; J2250; J2270; J2405; J2543; J3370; J7030

== ENCOUNTER 2022-10-10 10:27 | Emergency (ER) | payer OTHER ==
[~2022-10-10] VITALS: Ht 160 cm; Wt 72.6 kg
[2022-10-10 10:47] VITALS: O2SAT 97
[2022-10-10] MEDS ORDERED: MOXIFLOXACIN3 ML OP (11:06)
[2022-10-10] MEDS ORDERED: BENZONATATE100 MG PO (11:06)
[2022-10-10] MEDS ORDERED: MUCINEX DM ER1 EAC1 PO (11:06)
[2022-10-10] MEDS ORDERED: FLONASE ALLERG9.9 ML INH (11:06)
== END 2022-10-10 11:18 | disposition home or self-care (01) ==
LOC: FSED 10:35
DX: R05.9 Cough, unspecified (principal); J06.9 Acute upper respiratory infection, unspecified; H16.9 Unspecified keratitis; H10.33 Unspecified acute conjunctivitis, bilateral
CPT/HCPCS: 99282